=== PATIENT | female | born 1940 | race Caucasian/White ===

== ENCOUNTER 2016-08-04 17:30 | Emergency (ER) | payer MEDICARE, OTHER | END 2016-08-04 19:35 | disposition home or self-care (01) | LOC: ER 17:30 | DX: H81.10 Benign paroxysmal vertigo, unspecified ear (principal); H40.9 Unspecified glaucoma; Z98.890 Other specified postprocedural states; R42 Dizziness and giddiness; R11.0 Nausea; R51 Headache; Z88.2 Allergy status to sulfonamides; Z79.899 Other long term (current) drug therapy ==